=== PATIENT | male | born 1960 | race Two or more races ===

== ENCOUNTER 2020-09-20 05:31 | Inpatient (IN) | payer MEDICARE ==
[2020-09-09 15:19] LABS: BASOPHILS # (AUTO) 0.1 X10'3 (0-0.2); BASOPHILS % (AUTO) 1.2 % (0-1); EOSINOPHILS # (AUTO) 0.1 X10'3 (0-0.9); EOSINOPHILS % (AUTO) 1.7 % (0-6); LYMPHOCYTES # (AUTO) 1.7 X10'3 (1.1-4.8); LYMPHOCYTES % (AUTO) 25.1 % (21-51); MEAN CORPUSCULAR HEMOGLOBIN 30.3 PG (27.0-31.0); MEAN CORPUSCULAR HGB CONC 33.5 g/dL (33.0-36.5); MEAN CORPUSCULAR VOLUME 90.5 FL (78-98); MEAN PLATELET VOLUME 8.2 FL (7.4-10.4); MONOCYTES # (AUTO) 0.8 X10'3 (0-0.9); NEUTROPHILS # (AUTO) 4.1 X10'3 (1.8-7.7); PRE OP HEMATOCRIT 43.4 % (42.0-52.0); PRE OP HEMOGLOBIN 14.5 g/dL (14.0-17.9); PRE OP PLATELET COUNT 263 X10'3 (140-440)
[2020-09-09 15:34] LABS: ALBUMIN/GLOBULIN RATIO 1.1 (1.1-1.5); ALKALINE PHOSPHATASE 89 IU/L (46-116); BLOOD UREA NITROGEN 21 MG/DL (7-18); BUN/CREATININE RATIO 19.8 (5.4-32.0); CALCIUM 8.6 MG/DL (8.5-10.1); CHLORIDE 107 MMOL/L (99-107); CREATININE 1.06 MG/DL (0.60-1.10); PRE OP ALT 24 U/L (30-65); PRE OP ANION GAP 9 (8-16); PRE OP AST 17 U/L (10-37); PRE OP BILIRUB, TOTAL 0.3 MG/DL (0.0-1.0); PRE OP GLUCOSE 80 MG/DL (70-104); PRE OP SODIUM 143 MMOL/L (135-145); TOTAL CARBON DIOXIDE 26.9 MMOL/L (24-32); TOTAL PROTEIN 7.8 G/DL (6.4-8.2); eGFR 71 ML/MIN
[2020-09-20] VITALS (19 sets, daily range): BP systolic 102–135; BP diastolic 61–83
[~2020-09-20] VITALS: Ht 177.8 cm; Wt 72.7 kg
[~2020-09-20 05:31] MED LIST: ASCO500T28 PO; CHOL10002 PO; MULT-436 PO; OXYC1TAB17 PO; ceFAZolin 2gm in dextrose, iso 100 ML IV ONE; ceFAZolin 2gm in dextrose, iso 50 ML IV ONE; famotidine 20mg tablet PO ONE; ringers solution, lacted 1,000 ML IV SCH; vancomycin 1,500 MG in NS 300ml IV soln IV ONE
[2020-09-20] MEDS ORDERED: LIDOcaine 1% (10mg/ml) 2ml vial ONE (06:02)
[2020-09-20] MEDS ORDERED: bacitracin 15gm ointment TP ONE (06:50)
[2020-09-20] MEDS ORDERED: MIDAZolam 5mg/5ml vial ONE (07:02)
[2020-09-20] MEDS ORDERED: fentaNYL/PF 50MCG/1 ML 2ML syringe ONE ×2 (07:02→07:39)
[2020-09-20] MEDS ORDERED: morphine 2 MG/ML inj. syringe IV PRN (08:30)
[2020-09-20] MEDS ORDERED: ondansetron/PF 4mg/2ml inj IV PRN (08:30)
[2020-09-20] MEDS ORDERED: morphine 4 MG/ML inj SYRINge IV PRN (08:30)
[2020-09-20] MEDS ORDERED: meperidine/PF 25mg/ml syringe IV PRN ×3 (08:30)
[2020-09-20] MEDS ORDERED: ringers solution, lacted 1,000 ML IV SCH (08:30)
[2020-09-20] MEDS ORDERED: proCHLORperazine 10 MG/2 ml inj IV PRN (08:30)
[2020-09-20] MEDS ORDERED: BUPIVAcaine/PF 2.5mg/ml (0.25%) 10ml vial ONE (09:40)
[2020-09-20] MEDS ORDERED: acetaminophen 1,000mg/100ml IV 100 ML IV ONE (10:02)
--- NOTE | 2020-09-20 10:11 | NUR ---
RECEIVED FROM OR VIA BED WITH OHTF ACCOMPANIED BY ANESTHESIOLOGIST DR CLANCY, REPORT GIVEN. PT DROWSY BUT AROUSES EASILY AND DENIES PAIN. 20 GAUGE PIV R HAND PATENT AND RUNNING LR AT 100 ML/HR. [place] SPLINT RLE CDI, BRISK CAP REFILL, SKIN PINK AND WARM, PPULSES PALPABLE WITH R LE UNABLE TO PALPATE COVERED WITH SPLINT. LOPEZ, ABD SOFT, SCDS APPLIED, LE S ELEVATED, RESTING COMFORTABLY.
[2020-09-20] MEDS ORDERED: ROPIVAcaine 0.2% (10 MG/5 ML) BOLUS INJECTION POPLITEAL PRN (10:20)
[2020-09-20] MEDS ORDERED: ROPIVAcaine 0.2%/PF PUMP/bolus 550 ML POPLITEAL SCH (11:00)
[2020-09-20] MEDS ORDERED: oxyCODONE/APAP 5-325mg tablet PO PRN ×2 (11:00)
[2020-09-20] MEDS ORDERED: oxyCODONE/APAP 10/325mg tablet PO PRN (11:05)
--- NOTE | 2020-09-20 11:22 | NUR ---
Patient in room PAS IN 900. I have received report from Marielle and had the opportunity to ask questions and assume patient care.
--- NOTE | 2020-09-20 11:31 | NUR ---
TRANSPORTED VIA BED WITH OHTF ACCOMPANIED BY MYSELF, REPORT GIVEN. PT AWAKE, ALERT AND DENIES PAIN. 20 GAUGE PIV R HAND PATENT AND RUNNING LR AT 100 ML/HR. [place] SPLINT RLE CDI, BRISK CAP REFILL, SKIN PINK AND WARM, PPULSES PALPABLE WITH R LE UNABLE TO PALPATE COVERED WITH SPLINT. LOPEZ, ABD SOFT, SCDS APPLIED, LE S ELEVATED, RESTING COMFORTABLY. LEFT IN CARE OF PIOTR ARMANDO
[2020-09-20] MEDS ORDERED: ondansetron/PF 4mg/2ml inj ONE (11:47)
[2020-09-20] MEDS ORDERED: dexamethasone sod phosphate 4mg/ml inj. ONE (11:47)
[2020-09-20] MEDS ORDERED: propofol inj 20 ML IV ONE (11:47)
[2020-09-20] MEDS ORDERED: LIDOcaine 1%/PF 5ML 10 MG/ML VIAL ONE (11:47)
[2020-09-20] MEDS ORDERED: ROPIVAcaine 0.5% (5mg/ml) 30ml vial ONE (11:47)
--- NOTE | 2020-09-20 18:02 | NUR ---
Problems reprioritized. Patient report given, questions answered & plan of care reviewed with Ayana.
--- NOTE | 2020-09-20 18:21 | NUR ---
Patient in room ORTHO 4017. I have received report from Moses ARMANDO and had the opportunity to ask questions and assume patient care.
--- NOTE | 2020-09-20 22:22 | NUR ---
PAGER ID: [phone] MESSAGE: Ayana [email or web address] [phone]. Natalio May in room 4017A is requesting Tylenol for a headache. Thank you
[2020-09-20] MEDS ORDERED: acetaminophen 325mg tablet PO PRN (22:25)
[2020-09-21 00:55] VITALS: BP 147/78
[2020-09-21] MEDS ORDERED: ondansetron/PF 4mg/2ml inj IV ONE (02:50)
[2020-09-21] MEDS ORDERED: metoclopramide 5 mg/ml inj IV ONE (02:50)
--- NOTE | 2020-09-21 03:02 | NUR ---
I called the production designer physician and he said to give the patient both Reglan and Zofran iv for nausea; I also discussed the possibility that the Ropivacaine via the OnQpump could be causing the headache and nausea. I informed him that I would decrease it to lowest setting of a 2ml/hr from the 6ml and see how he responded. The physician is Dr. Bloom.
--- NOTE | 2020-09-21 06:28 | NUR ---
Problems reprioritized. Patient report given, questions answered & plan of care reviewed with Marielle ARMANDO.
[2020-09-21 06:47] VITALS: BP 123/71
[2020-09-21] MEDS ORDERED: vitamin D (cholecalciferol) 1,000 unit tablet PO SCH (08:00)
[2020-09-21] MEDS ORDERED: ascorbic acid 500mg tablet PO SCH (08:00)
[2020-09-21] MEDS ORDERED: multivitamins, therapeutics tablet PO SCH (08:00)
[2020-09-21 10:00] VITALS: BP 130/77
== END 2020-09-21 10:00 | disposition home or self-care (01) | DRG 469 ==
LOC: PAS IN 05:31 → UNDOADMIN 05:31 → EDSTATUS 07:30 → PAS IN 10:34 → ORTHO 4S 11:30
PROVIDERS: ADMIT Podiatrist Foot & Ankle Surgery; ATTEND Podiatrist Foot & Ankle Surgery
PROC: 0SRF0J9 Replacement of Right Ankle Joint with Synthetic Substitute, Cemented, Open Approach (ICD-10-PCS; principal; 2020-09-20 07:01)
DX: M19.071 Primary osteoarthritis, right ankle and foot (principal); M21.071 Valgus deformity, not elsewhere classified, right ankle; R11.0 Nausea
CPT/HCPCS: 36415; 73600; 76000; 80053; 82948; 85025; 87081; 87635; 97161; 97530; A4618; A6223; A6449; A7000; C1713; C1776; G0378; J0131; J1100; J2001; J2250; J2405; J2704; J2765; J2795; J3010; J3370; J3490; J7040; J7120